=== PATIENT | male | born 1945 | race Caucasian/White ===

== ENCOUNTER 2017-01-23 10:02 | Emergency (ER) | payer MEDICARE, OTHER ==
[2017-01-23 08:45] LABS: BASOPHILS 0.4 %; BASOPHILS ABSOLUTE 0.02 10/3/uL (0.0-0.16); EOSINOPHILS 13.3 %; EOSINOPHILS ABSOLUTE 0.63 10/3/uL (0.0-0.53); ER CBC TAT 0 Hrs 07 Mins; HEMATOCRIT 37.3 % (40.0-51.0); HEMOGLOBIN 12.8 g/dL (13.6-17.8); IMMATURE GRANULOCYTES 0.2 %; IMMATURE GRANULOCYTES ABSOLUTE 0.01 10/3/uL (0.0-0.11); LYMPHOCYTES 23.2 %; MANUAL DIFF NO %; MEAN CORPUS HGB CONC 34.3 g/dL (32.0-36.0); MEAN CORPUSCULAR HEMOGLOB 30.6 pg (26.0-34.0); MEAN CORPUSCULAR VOLUME 89.2 fL (80-100); MEAN PLATELET VOLUME 11.8 fL (9.2-13.0); MONOCYTES 7.8 %; MONOCYTES ABSOLUTE 0.37 10/3/uL (0.21-1.20); NEUTROPHILS 55.1 %; NEUTROPHILS ABSOLUTE 2.62 10/3/uL (2.02-8.40); PLATELET COUNT 128 10/3/uL (150-400); RBC DISTRIBUTION WIDTH 13.3 % (12.0-16.0); RED CELL COUNT 4.18 10/6/uL (4.7-6.1); WHITE BLOOD CELLS 4.8 10/3/uL (4.5-10.5)
[2017-01-23 09:02] LABS: ALBUMIN 3.3 G/DL (3.5-5.0); ALKALINE PHOSPHATASE 80 U/L (45-117); BUN (BLOOD UREA NITROGEN) 13 MG/DL (6-23); CALCIUM, SERUM 8.4 MG/DL (8.5-10.4); CHLORIDE, SERUM 108 MMOL/L (96-112); CO2 (CARBON DIOXIDE) 29 MMOL/L (24-34); CREATININE 1.06 MG/DL (0.70-1.30); GFR AFRICAN AMERICAN 81 ML/MIN (>=60); GFR NON AFRICAN AMERICAN 70 ML/MIN (>=60); GLUCOSE, SERUM 122 MG/DL (60-99); SGPT(ALT) 21 U/L (5-65); TOTAL BILIRUBIN 0.4 MG/DL (0-1.2); TOTAL PROTEIN 5.8 G/DL (6.0-8.5); TROPONIN I <0.02 NG/ML (<0.05)
[2017-01-23 09:03] LABS: A/G RATIO 1.3 (0.7-1.9); GLOBULIN 2.5 G/DL (2.5-4.1); LACTATE 1.3 MMOL/L (0.3-2.4); POTASSIUM, SERUM 4.2 MMOL/L (3.5-5.3); SGOT(AST) 31 U/L (5-40); SODIUM, SERUM 144 MMOL/L (135-148)
[2017-01-23 09:39] LABS: ASCORBIC ACID (UR NOT ORDER) NEG (NEG); BILIRUBIN, URINE NEGATIVE (NEG); KETONE, URINE NEGATIVE (NEG); LEUKOCYTE ESTERASE(NOT OR NEG (NEG); NITRITE (URINE) NEG (NEG); WBC (NOT ORDERED) (RFLEX) < 1 (0-5)
[2017-01-23 09:42] LABS: ER URINALYSIS TAT 0 Hrs 43 Mins
[~2017-01-23 10:02] MED LIST: ACET500CAP PO; AMB5 PO; ASAB PO; BEN25 PO; FERROUS SULF325 M1 PO; LEVAQUIN750 MG PO; LIPITOR40 PO; LOFIB160 PO; LOP25 PO; MELATONIN5 M1 PO; NABUMETONE750 MG PO; PERCOCET1 TA4 PO; PRILO PO; X5 PO; ZOL100 PO
== END 2017-01-23 10:57 | disposition home or self-care (01) ==
LOC: ER 10:02
PROVIDERS: Emergency Medicine
DX: R10.13 Epigastric pain (principal); K21.9 Gastro-esophageal reflux disease without esophagitis; Z95.1 Presence of aortocoronary bypass graft; Z87.891 Personal history of nicotine dependence; Z79.82 Long term (current) use of aspirin
CPT/HCPCS: 74176; 80053; 81001; 83605; 83690; 84484; 85025; 93005; 99285; A9270-GY